=== PATIENT | male | born 1995 | race African-American/Black ===

== ENCOUNTER 2018-05-15 15:09 | Emergency (ER) | payer BC, MEDICAID ==
[~2018-05-15] VITALS: Ht 165.1 cm; Wt 65.0 kg
[2018-05-15] MEDS ORDERED: VYVANSE30 MG PO (15:24)
[2018-05-15] MEDS ORDERED: [UNRECOGNIZED DRUG - OTHER] (15:24)
[2018-05-15] MEDS ORDERED: INTUNIV4 MG (15:24)
[2018-05-15] MEDS ORDERED: ABILIFY5 MG PO (15:25)
[2018-05-15 16:15] VITALS: BP 138/73; PULSE 99; TEMP 98.7
== END 2018-05-15 16:15 | disposition home or self-care (01) ==
LOC: COL.ER 15:09
DX: R10.13 Epigastric pain (principal); F90.9 Attention-deficit hyperactivity disorder, unspecified type; F31.9 Bipolar disorder, unspecified; F17.210 Nicotine dependence, cigarettes, uncomplicated; Z21 Asymptomatic human immunodeficiency virus [HIV] infection status; Z86.19 Personal history of other infectious and parasitic diseases